=== PATIENT | male | born 1965 | race Caucasian/White ===

== ENCOUNTER 2020-12-05 10:25 | Observation (INO) | payer MEDICARE, OTHER ==
[~2020-12-05] VITALS: Ht 182.9 cm; Wt 81.6 kg
[~2020-12-05 10:25] MED LIST: ALBUTEROL; ASPIRIN EC325 MG PO; AUGMENTIN 875-1 EACH PO; BACTRIM DS TAB1 EACH PO; CARAFATE 1 GM TA1 GM PO; ELIMITE60 GM TP; ELIQUIS 5 MG TAB5 MG PO; ELIQUIS5 MG PO; ENALAPRIL MALEA20 MG PO; FLAGYL500 MG PO; FLOMAX 0.4 MG0.4 MG PO; IBUPROFEN800 MG PO; KEFLEX CAP 500500 MG PO; MIRALAX17 GM PO; NEURONTIN600 MG PO; NORCO 10-325 T1 EACH PO; NORVASC10 MG PO; OMEPRAZOLE40 MG PO; PRILOSEC OTC20 MG PO; QUETIAPINE FUM100 MG PO; VISTARIL25 MG PO; WELLBUTRIN XL300 MG PO; XANAX1 MG PO; ZOFRAN 4 MG TAB4 MG PO; albuter; albuter INH
[2020-12-05 11:06] LABS: HEMOGLOBIN 15.7 gm/dl (14.0-17.5); RED BLOOD COUNT 4.97 M/UL (4.20-5.50); WHITE BLOOD COUNT 16.1 K/UL (4.5-11.0)
[2020-12-05 12:08] LABS: BUN/CREATININE RATIO 17 (0-10)
[2020-12-05] MEDS ORDERED: VENTOLIN HFA 66.7 GM INH (17:08)
[2020-12-05] MEDS ORDERED: EXCEDRIN MIGRA1 EACH PO (17:09)
[2020-12-05] MEDS ORDERED: AMLODIPINE BESY10 MG PO (17:09)
[2020-12-05] MEDS ORDERED: PROTONIX 40 MG40 M1 PO (17:10)
[2020-12-05] MEDS ORDERED: TUMS200 MG PO (17:10)
[2020-12-05] MEDS ORDERED: STIOLTO RESPIMAT4 GM INH (17:15)
[2020-12-05] MEDS ORDERED: QUETIAPINE FUM100 MG PO (17:18)
[2020-12-06 04:38] LABS: HEMOGLOBIN 13.2 gm/dl (14.0-17.5); RED BLOOD COUNT 4.27 M/UL (4.20-5.50); WHITE BLOOD COUNT 11.7 K/UL (4.5-11.0)
[2020-12-06 05:17] LABS: BUN/CREATININE RATIO 18 (0-10)
[2020-12-07 04:46] LABS: HEMOGLOBIN 12.9 gm/dl (14.0-17.5); RED BLOOD COUNT 4.12 M/UL (4.20-5.50)
[2020-12-07 05:14] LABS: WHITE BLOOD COUNT 6.9 K/UL (4.5-11.0)
[2020-12-07 05:35] LABS: BUN/CREATININE RATIO 11 (0-10)
[2020-12-07] MEDS ORDERED: ELIQUIS 5 MG TAB5 MG PO (11:21)
[2020-12-07] MEDS ORDERED: K-DUR TAB 20 M20 MEQ PO (11:27)
[2021-04-05] MEDS ORDERED: LOPRESSOR100 MG PO (02:04)
== END 2020-12-08 12:09 | disposition home or self-care (01) ==
LOC: ER1 10:25 → CDU 16:38 → MED SURG 4 16:38
PROVIDERS: Family Medicine; Physician Assistant Medical; ADMIT Internal Medicine
DX: R07.89 Other chest pain (principal); M62.82 Rhabdomyolysis; D68.51 Activated protein C resistance; N40.0 Benign prostatic hyperplasia without lower urinary tract symptoms; J44.9 Chronic obstructive pulmonary disease, unspecified; F17.210 Nicotine dependence, cigarettes, uncomplicated; I10 Essential (primary) hypertension; G89.29 Other chronic pain; M54.9 Dorsalgia, unspecified; K21.9 Gastro-esophageal reflux disease without esophagitis; K29.80 Duodenitis without bleeding; D72.829 Elevated white blood cell count, unspecified; E87.6 Hypokalemia; Z86.718 Personal history of other venous thrombosis and embolism; Z20.822 Contact with and (suspected) exposure to COVID-19; Z88.5 Allergy status to narcotic agent; Z79.82 Long term (current) use of aspirin; Z79.899 Other long term (current) drug therapy
CPT/HCPCS: 36415; 70450; 71045; 80048; 80053; 80307; 81001; 82550; 82553; 83735; 83874; 84132; 84484; 85025; 85027; 93005; 93971; 94640; 94664; 94760; 99285; G0378; J7030; Q9967; U0002

== ENCOUNTER 2020-12-08 21:33 | Emergency (ER) | payer MEDICARE, OTHER ==
[~2020-12-08 21:33] MED LIST changes: +AMLODIPINE BESY10 MG PO; +EXCEDRIN MIGRA1 EACH PO; +K-DUR TAB 20 M20 MEQ PO; +PROTONIX 40 MG40 M1 PO; +STIOLTO RESPIMAT4 GM INH; +TUMS200 MG PO; +VENTOLIN HFA 66.7 GM INH
[2020-12-08 22:20] LABS: BUN/CREATININE RATIO 9 (0-10)
[2021-04-05] MEDS ORDERED: LOPRESSOR100 MG PO (02:04)
== END 2020-12-08 23:09 | disposition home or self-care (01) ==
LOC: ER1 21:33
PROVIDERS: Physician Assistant
DX: I10 Essential (primary) hypertension (principal); M62.82 Rhabdomyolysis; F17.210 Nicotine dependence, cigarettes, uncomplicated; J44.9 Chronic obstructive pulmonary disease, unspecified; K21.9 Gastro-esophageal reflux disease without esophagitis; Z90.49 Acquired absence of other specified parts of digestive tract; Z88.5 Allergy status to narcotic agent; Z79.899 Other long term (current) drug therapy; Z79.01 Long term (current) use of anticoagulants
CPT/HCPCS: 80048; 82550; 82553; 83874; 84484; 93005; 99283

== ENCOUNTER 2021-04-05 03:01 | Observation (INO) | payer MEDICARE, OTHER ==
[~2021-04-05] VITALS: Ht 182.9 cm; Wt 81.6 kg
[~2021-04-05 03:01] MED LIST changes: +LOPRESSOR100 MG PO
[2021-04-05 04:50] LABS: HEMOGLOBIN 16.3 gm/dl (14.0-17.5); RED BLOOD COUNT 4.98 M/UL (4.20-5.50); WHITE BLOOD COUNT 22.7 K/UL (4.5-11.0)
[2021-04-05 06:40] LABS: BUN/CREATININE RATIO 34 (0-10)
[2021-04-05] MEDS ORDERED: REXULTI0.5 MG PO (10:10)
[2021-04-05] MEDS ORDERED: FLOMAX 0.4 MG0.4 MG PO (10:18)
[2021-04-05] MEDS ORDERED: HYDROCODON-ACE1 EAC6 PO (17:19)
[2021-04-06 03:42] LABS: HEMOGLOBIN 12.9 gm/dl (14.0-17.5); RED BLOOD COUNT 4.04 M/UL (4.20-5.50); WHITE BLOOD COUNT 11.2 K/UL (4.5-11.0)
[2021-04-06 04:07] LABS: BUN/CREATININE RATIO 23 (0-10)
== END 2021-04-06 16:45 | disposition home or self-care (01) ==
LOC: ER1 03:01 → CDU 09:52 → PROG CARE 13:10
PROVIDERS: Emergency Medicine; Physician Assistant; ADMIT Internal Medicine
DX: G92 Toxic encephalopathy (principal); I10 Essential (primary) hypertension; I47.2 Ventricular tachycardia; F41.8 Other specified anxiety disorders; J45.909 Unspecified asthma, uncomplicated; Z88.5 Allergy status to narcotic agent; I82.509 Chronic embolism and thrombosis of unspecified deep veins of unspecified lower extremity; Z87.891 Personal history of nicotine dependence; Z20.822 Contact with and (suspected) exposure to COVID-19
CPT/HCPCS: 0240U; 36415; 71045; 80048; 80053; 80307; 81001; 82550; 82553; 83605; 83690; 83735; 84100; 84439; 84443; 84484; 85025; 85379; 85610; 85730; 87040; 93005; 96372; 96374; 96375; 96376; 99285; G0378; J0696; J1200; J2060; J2405; J3360; J3486; Q9967